=== PATIENT | female | born 1975 | race Caucasian/White ===

== ENCOUNTER 2017-01-06 11:12 | Emergency (ER) | payer MEDICAID ==
[~2017-01-06] VITALS: Ht 152.4 cm; Wt 57.0 kg
[~2017-01-06 11:12] MED LIST: ACET500C5 PO; CEPH-443 PO; GLYC113C3 TOP; HYDR-3498 PO; IBUP400T22 PO; MUPI22OI2 TOP; NITR-58 PO; ONDA4TAB8 PO; TR1B60 TOP
[2017-01-06 11:17] VITALS: Ht 152.4 cm; Wt 57.0 kg
[2017-01-06 12:44] LABS: ADD SCAN DIFF NO
[2017-01-06 12:47] LABS: BASOPHILS % 0.5 % (0.0-2.0); EOSINOPHILS # 0.2 10^3/ul (0.0-0.5); HEMATOCRIT 42.9 % (37.0-47.0); HEMOGLOBIN 13.4 g/dl (12.0-16.0); LYMPHOCYTES # 3.1 10^3/ul (0.8-2.9); LYMPHOCYTES % 37.8 % (15.0-51.0); MEAN CORPUSCULAR HEMOGLOBIN 26.5 pg (29.0-33.0); MEAN CORPUSCULAR HGB CONC 31.2 g/dl (32.0-37.0); MEAN PLATELET VOLUME 8.9 fl (7.4-10.4); MONOCYTE # 0.6 10^3/ul (0.3-0.9); MONOCYTES % 7.8 % (0.0-11.0); NEUTROPHIL # 4.1 10^3/ul (1.6-7.5); NEUTROPHILS % 50.3 % (39.0-77.0); PLATELET COUNT 403 10^3/UL (140-415); RED BLOOD COUNT 5.05 10^6/ul (4.20-5.40); RED CELL DISTRIBUTION WIDTH 17.9 % (11.5-14.5); WHITE BLOOD COUNT 8.1 10^3/ul (4.8-10.8)
[2017-01-06 12:53] LABS: ADD UMIC YES; URINE BILIRUBIN (Dip) NEGATIVE (NEGATIVE); URINE BLOOD (Dip) 3+ (NEGATIVE); URINE COLOR LT. YELLOW (YELLOW); URINE GLUCOSE (Dip) NEGATIVE (NEGATIVE); URINE KETONES (Dip) NEGATIVE (NEGATIVE); URINE LEUKOCYTE ESTERASE (Dip) 2+ (NEGATIVE); URINE NITRITE (Dip) NEGATIVE (NEGATIVE); URINE TOTAL PROTEIN (Dip) NEGATIVE (NEGATIVE); URINE UROBILINOGEN (Dip) 0.2 E.U./dL (0.1-1.0)
[2017-01-06 13:02] LABS: ALBUMIN 4.8 g/dl (3.3-4.9); SQUAMOUS EPITHELIAL CELL,UR OCCASIONAL; URINE RBCS >200 /HPF (0)
[2017-01-06 13:03] LABS: POTASSIUM 3.8 mmol/L (3.5-5.1)
[2017-01-06 13:04] LABS: BACTERIA,URINE FEW
[2017-01-06 13:05] LABS: ALBUMIN/GLOBULIN RATIO 1.29; BILIRUBIN,INDIRECT 0.3 mg/dl (0-1.1); BILIRUBIN,TOTAL 0.3 mg/dl (0.2-1.3); CREATININE 0.63 mg/dl (0.44-1.00); TOTAL PROTEIN 8.5 g/dl (6.1-8.1)
--- NOTE | 2017-01-06 13:43 | RADRPT ---
PROCEDURE: Pelvic ultrasound. CLINICAL INDICATION: Pelvic pain TECHNIQUE: Allen scale, color doppler, spectral doppler ultrasound of the pelvis was performed with transabdominal and transvaginal transducers. COMPARISON: 03/10/2016 FINDINGS: Uterus: Position: Retroflexed Normal myometrial echogenicity. Normal appearance of the endometrium. Ovaries: Normal sized ovaries with preserved blood flow. No adnexal masses. A few normal appearing sub-centimeter follicles are seen in each ovary. Free fluid: None. Measurements: Endometrium: 0.8 cm Uterus: 7.6 x 4.0 x 5.3 cm Right ovary: 2.7 x 1.3 x 1.6 cm Left ovary: 3.3 x 1.1 x 1.8 cm IMPRESSION: Normal examination. RPTAT: AADD .Jose Alberto Chew MD, Date Time Electronically viewed and signed by .Jose Alberto Chew MD, MD on 01/06/2017 13:43 .B/
[2017-01-06] MEDS ORDERED: NITR-58 PO (14:23)
[2017-01-06] MEDS ORDERED: ACET500C5 PO (14:24)
--- NOTE | 2017-01-06 15:43 | ERD ---
ER Documentation Chief Complaint Date/Time DATE: 01/06/17 TIME: 15:35 Chief Complaint Pt with VB X 2 months since the of her baby. HPI 41-year-old female patient presents to the ED with no significant past medical history complaining of constant vaginal bleeding that started 2 months ago after having a vaginal delivery of her third baby. She is a . Her PRESS OPERATOR APPRENTICE is Dr. Ben Max. States that she feels vice president mission integration her hands and feet. States that she has had to change 4-5 pads. Patient reports a slight headache in the left region. Reports that her pain is sharp and rates it a 10 out of 10. States that she delivered her baby at [facility]. Denies any dysuria, urgency, frequency, flank pain, chest pain, shortness of breath. ROS All systems reviewed and are negative except as per history of present illness. Medications Home Meds Active Scripts Acetaminophen* (Tylophen*) 500 Mg Capsule, 1 CAP PO Q6H Y for PAIN AND OR ELEVATED TEMP, #20 CAP Prov:RIOS CHRISTY PA-C 01/06/17 Nitrofurantoin Monohyd Macrocr* (Macrobid*) 100 Mg Capsr, 100 MG PO BID for 7 Days, CAP Prov:RIOS CHRISTY-Dalia 01/06/17 Nitrofurantoin Monohyd Macrocr* (Macrobid*) 100 Mg Capsr, 100 MG PO BID for 7 Days, CAP Prov:THERESA DUARTE-C 03/10/16 Acetaminophen* (Tylophen*) 500 Mg Capsule, 1 CAP PO Q6H Y for PAIN AND OR ELEVATED TEMP, #30 CAP Prov:THERESA DUARTE-C 03/10/16 Ondansetron Hcl* (Zofran*) 4 Mg Tablet, 4 MG PO Q6H for NAUSEA AND/OR VOMITING, #30 TAB Prov:THERESA DUARTEC 03/10/16 Hydrocodone Bit-Acetaminophen* (Rhinelander*) 5-325 Mg Tab, 1 TAB PO Q8 Y for PAIN, # 7 TAB Prov:DONAL MIR DO 07/05/15 Ibuprofen* (Ibuprofen*) 400 Mg Tablet, 400 MG PO TID, #14 TAB Prov:DONAL MIR DO 07/05/15 Triamcinolone Acetonide (Triamcinolone Acetonide) 0.1% - 60 Ml Lotion, 1 APPLIC TOP DAILY, #1 BOTTLE Prov:DONAL MIR DO 07/05/15 Eucerin* (Eucerin*) 113 Gm Cream..g., 1 APPLIC TOP TID, #1 TUB Prov:DONAL MIR DO 07/05/15 Cephalexin* (Keflex*) 500 Mg Capsule, 500 MG PO QID for 5 Days, CAP Prov:ALEXYANIV Gómez 05/09/15 Mupirocin* (Bactroban*) 2% -22 Gram Oint...g., 1 APPLIC TOP BID for 7 Days, EA Prov:ALEXYANIV Gómez 05/09/15 Hydrocodone Bit-Acetaminophen* (Rhinelander*) 5-325 Mg Tab, 1 TAB PO Q4H Y for PAIN, # 15 TAB Prov:ALEXYANIV Gómez 04/02/15 Nitrofurantoin Monohyd Macrocr* (Macrobid*) 100 Mg Capsr, 100 MG PO HS for 7 Days Prov:JENNIFER JOHNSONMARYCARMEN Gómez 04/02/15 PMhx/Soc History of Surgery: Yes (etopic preg. ) Anesthesia Reaction: No Hx Neurological Disorder: No Hx Respiratory Disorders: No Hx Cardiac Disorders: No Hx Psychiatric Problems: No Hx Miscellaneous Medical Probl: No Hx Alcohol Use: No Hx Substance Use: No Hx Tobacco Use: No Smoking Status: Never smoker Physical Exam Vitals Vital Signs Date Time Temp Pulse Resp B/P Pulse Ox O2 Delivery O2 Flow Rate FiO2 01/06/17 11:17 98.3 72 20 149/74 100 Physical Exam Const: Vjo-qey-rhjnwfmra, well-nourished. In no acute distress. Head: Atraumatic, normocephalic Eyes: Normal Conjunctiva without injection. No purulent discharge. ENT: Normal external ear, nose. Moist oropharynx without tonsillar exudates. Non -erythematous pharynx. Uvula midline. No drooling. No trismus. Neck: No cervical midline tenderness. Full range of motion. No meningismus. No cervical lymphadenopathy. No JVD. Resp: Clear to auscultation bilaterally. No wheezing, rhonchi, rales, or crackles. No accessory muscle use. No retractions. Cardio: Regular rate and rhythm. No murmurs, rubs or gallops. Abd: Soft, suprapubic tenderness, non distended. Normal bowel sounds. No palpable masses. No rebound tenderness. No guarding. Negative McBurney's point. Negative psoas sign. Negative obturator sign. Skin: No petechiae or rashes Back: No midline tenderness. No CVA tenderness. Ext: No cyanosis, or edema. Neur: Awake and alert. Normal gait. Normal coordination. Psych: Normal Mood and Affect Result Diagram: 01/06/17 1230 01/06/17 1230 Results 24 hrs Laboratory Tests Test 01/06/17 12:30 White Blood Count 8.110^3/ul Red Blood Count 5.0510^6/ul Hemoglobin 13.4g/dl Hematocrit 42.9% Mean Corpuscular Volume 85.0fl Mean Corpuscular Hemoglobin 26.5pg Mean Corpuscular Hemoglobin Concent 31.2g/dl Red Cell Distribution Width 17.9% Platelet Count 18625^3/UL Mean Platelet Volume 8.9fl Neutrophils % 50.3% Lymphocytes % 37.8% Monocytes % 7.8% Eosinophils % 3.0% Basophils % 0.5% Nucleated Red Blood Cells % 0.0/100WBC Neutrophils # 4.110^3/ul Lymphocytes # 3.110^3/ul Monocytes # 0.610^3/ul Eosinophils # 0.210^3/ul Basophils # 0.010^3/ul Nucleated Red Blood Cells # 0.010^3/ul Urine Color LT. YELLOW Urine Clarity SLIGHTLY CLOUDY Urine pH 6.5 Urine Specific [place] 1.010 Urine Ketones NEGATIVE Urine Nitrite NEGATIVE Urine Bilirubin NEGATIVE Urine Urobilinogen 0.2 E.U./dL Urine Leukocyte Esterase 2+ Urine Microscopic RBC >200/HPF Urine Microscopic WBC 10-25/HPF Urine Squamous Epithelial Cells OCCASIONAL Urine Bacteria FEW Urine Hemoglobin 3+ Urine Glucose NEGATIVE% Urine Total Protein NEGATIVE Sodium Level 143mmol/L Potassium Level 3.8mmol/L Chloride Level 105mmol/L Carbon Dioxide Level 23mmol/L Anion Gap 19 Blood Urea Nitrogen 10mg/dl Creatinine 0.63mg/dl Glucose Level 91mg/dl Calcium Level 9.0mg/dl Total Bilirubin 0.3mg/dl Direct Bilirubin 0.00mg/dl Indirect Bilirubin 0.3mg/dl Aspartate Amino Transf (AST/SGOT) 118IU/L Alanine Aminotransferase (ALT/SGPT) 140IU/L Alkaline Phosphatase 176IU/L Total Protein 8.5g/dl Albumin 4.8g/dl Globulin 3.70g/dl Albumin/Globulin Ratio 1.29 Beta HCG, Quantitative < 2.4mIU/ml Procedures/MDM 41-year-old female patient presents the ED complaining of vaginal bleeding 2 months ago since the of her baby. Patient is afebrile and nontoxic- appearing. Patient's blood pressure was noted to be 149/74. An ultrasound, beta-hCG, CBC, type and RH, UA was ordered to evaluate patient. CBC: No leukocytosis. No e/o of systemic infection. No e/o anemia. CMP: No e/o severe acidosis, alkalosis, renal failure, diabetic ketoacidosis Urine: 2+ leukocyte esterase with WBC 10-25, no nitrites, no hematuria. Beta hCG is less than 2.4 PROCEDURE: Pelvic ultrasound. CLINICAL INDICATION: Pelvic pain TECHNIQUE: Allen scale, color doppler, spectral doppler ultrasound of the pelvis was performed with transabdominal and transvaginal transducers. COMPARISON: 03/10/2016 FINDINGS: Uterus: Position: Retroflexed Normal myometrial echogenicity. Normal appearance of the endometrium. Ovaries: Normal sized ovaries with preserved blood flow. No adnexal masses. A few normal appearing sub-centimeter follicles are seen in each ovary. Free fluid: None. Measurements: Endometrium: 0.8 cm Uterus: 7.6 x 4.0 x 5.3 cm Right ovary: 2.7 x 1.3 x 1.6 cm Left ovary: 3.3 x 1.1 x 1.8 cm IMPRESSION: Normal examination. Slightly elevated liver enzymes, no thrombocytopenia. No elevated bilirubin. Creatinine is within normal limits. This case was discussed with my supervising physician, Dr. Faith. He agreed that patient can be managed on outpatient basis. Patient has a urinary tract infection. Patient's bleeding symptoms have stabilized while in the department. Low suspicion for symptomatic anemia, ectopic , sepsis, PID, appendicitis, ovarian torsion, tubo- ovarian abscess, surgical abdomen, or other emergent conditions. Patient was educated that there is a risk for threatened . Discharge medications: Tylenol, Macrobid Patient to follow up with PRESS OPERATOR APPRENTICE in 2 days for further evaluation and treatment. Patient is to return sooner to the ED for any worsening symptoms. Patient's questions were answered. Patient understood and agreed with discharge plan. Departure Diagnosis: Primary Impression: Vaginal bleeding Additional Impression: Urinary tract infection Urinary tract infection type: acute cystitis Hematuria presence: with hematuria Qualified Code: N30.01 - Acute cystitis with hematuria Condition: Stable Patient Instructions: Urinary Tract Infections in Women, Dysfunctional Uterine Bleeding Ref[facility]: [facility] Usted se mcknight hecho un examen mdico de control que le indica que no est en leroy condicin que requiera tratamiento urgente en el Departamento de Emergencia. Un estudio ms profundo y el tratamiento de schreiber condicin pueden esperar sin ningn riesgo hasta que usted sea atendida/o en el consultorio de schreiber mdico o leroy cl juancho. Es responsabilidad suya arreglar leroy nadeen para el seguimiento del krish. MANEJO DE CONDICIONES NO URGENTES EN EL FUTURO 1) Si usted tiene un mdico de atencin primaria: Usted debera llamar a schreiber mdico de atencin primaria antes de venir al departamento de emergencia. Despus de las horas de consultorio, schreiber doctor o schreiber asociado/a est disponible por telfono. El mdico o enfermero de derek en el servicio telefnico puede asesorarle por raphael medio para atender el problema, o krish contrario se puede programar leroy nadeen. 2) Si usted no tiene un mdico de atencin primaria: Llame al mdico o clnica de referencia que aparece abajo sotero las horas de consultorio para hacer leroy nadeen para que le vean. CLINICAS: [facility] [phone] [facility] 577 [phone] [address] [facility] 295 [phone] [address] [facility] [phone] [facility]. [place] [id number] [phone] [facility]. [phone] [facility] () Usted se mcknight hecho un examen mdico de control que le indica que no est en leroy condicin que requiera tratamiento urgente en el Departamento de Emergencia. Un estudio ms profundo y el tratamiento de schreiber condicin pueden esperar sin ningn riesgo hasta que usted sea atendida/o en el consultorio de schreiber mdico o leroy cl juancho. Es responsabilidad suya arreglar leroy nadeen para el seguimiento del krish. MANEJO DE CONDICIONES NO URGENTES EN EL FUTURO 1) Si usted tiene un mdico de atencin primaria: Usted debera llamar a schreiber mdico de atencin primaria antes de venir al departamento de emergencia. Despus de las horas de consultorio, schreiber doctor o schreiber asociado/a est disponible por telfono. El mdico o enfermero de derek en el servicio telefnico puede asesorarle por raphael medio para atender el problema, o krish contrario se puede programar leroy nadeen. 2) Si usted no tiene un mdico de atencin primaria: Llame al mdico o condado institucions de referencia que aparece abajo sotero las horas de consultorio para hacer leroy nadeen para que le vean. SI USTED NO PUEDE PAGAR PARA GUILLERMO UN MEDICO puede ir a: [facility] [address] [place] [address] [facility] [address] [place] [address] [facility] [address] [place] [address] PARA JOSE [facility] [address] [place] [address] PRESS OPERATOR AP[place] [address] [facility] [address] [place] [address] OFFICE FAX , JOSÉ MIGUEL [address] [place] [address] DR. CARBONE, [place] [address] [place] [address] [address] WELLS[facility] [address] [facility], [address], [place] [address] [address] [facility] [address] [place] [address] CLINICA OLALLA [address] [place] [address] [phone] [facility] [address] - [address] VENEGAS, LELIA [address], [place] [address] DR LEAL, JACKIE [address] [facility]. [address], [place] [address] DR MICHELLE, FARID [address] [place], [place] [id number] [facility] Hours: 8:00 am - 5:00 pm Additional Instructions: Llame al doctor, Dr. Ben Max (obstetrica) en dos navarro y zahraa leroy NADEEN PARA DENTRO DE 2-3 NAVARRO.Dgale a la secretaria que nosotros le instruimos hacer esta nadeen.Avise o llame si schreiber condicin se empeora antes de la nadeen. Regresa aqui si peor o no mejor. RIOS CHRISTY PA-C Jan 06, 2017 15:43
== END 2017-01-06 14:35 | disposition home or self-care (01) ==
LOC: FTE 11:12
DX: N93.9 Abnormal uterine and vaginal bleeding, unspecified (principal); N30.01 Acute cystitis with hematuria
CPT/HCPCS: 36415; 76830; 76856; 80053; 81001; 81003; 84702; 85025; Z7502